=== PATIENT | male | born 1955 | race African-American/Black ===

== ENCOUNTER 2021-07-17 13:54 | Emergency (ER) | payer MEDICAID ==
[~2021-07-17] VITALS: Ht 172.7 cm; Wt 80.0 kg
[2021-07-17] MEDS ORDERED: FLUT9.9S16 BOTHNSTRLS (15:31)
[2021-07-17] MEDS ORDERED: ONDA4TAB11 PO (15:31)
[2021-07-17] MEDS ORDERED: ALBU6.7H15 INH (15:31)
[2021-07-17 16:00] VITALS: BP 143/86
== END 2021-07-17 16:32 | disposition home or self-care (01) ==
LOC: ER 13:54
DX: R05.9 Cough, unspecified (principal); R09.81 Nasal congestion; Z20.822 Contact with and (suspected) exposure to COVID-19; E11.9 Type 2 diabetes mellitus without complications; E78.00 Pure hypercholesterolemia, unspecified; I10 Essential (primary) hypertension
CPT/HCPCS: 99283; C9803; U0003; U0005

== ENCOUNTER 2023-12-10 02:35 | Emergency (ER) | payer MEDICAID ==
[~2023-12-10] VITALS: Ht 172.7 cm; Wt 96.0 kg
[~2023-12-10 02:35] MED LIST: ALBU6.7H15 INH; FLUT9.9S16 BOTHNSTRLS; ONDA4TAB11 PO
[2023-12-10 02:56] VITALS: O2SAT 98
[2023-12-10] MEDS: DEXAMETHASONE 10 MG/ML VIAL IM ONE (03:26)
[2023-12-10 05:07] VITALS: BP 104/66; PULSE 74; RESP 16; TEMP 96.4
== END 2023-12-10 05:09 | disposition home or self-care (01) ==
LOC: ER 03:18
DX: K13.79 Other lesions of oral mucosa (principal); J02.9 Acute pharyngitis, unspecified; E11.9 Type 2 diabetes mellitus without complications; I10 Essential (primary) hypertension
CPT/HCPCS: 99283; 87430; 87070; 96372; J1100